=== PATIENT | female | born 1995 | race Hispanic/Latino ===

== ENCOUNTER 2019-02-08 21:06 | Emergency (ER) | payer BC, MEDICAID ==
[2019-02-08] MEDS ORDERED: DEXAMETHASONE SOD PHOSPHATE 10MG/ML 1ML VIAL ONE (21:54)
== END 2019-02-08 22:09 | disposition home or self-care (01) ==
LOC: EDH 21:06
DX: O26.892 Other specified pregnancy related conditions, second trimester (principal); H69.81 Other specified disorders of Eustachian tube, right ear; Z90.49 Acquired absence of other specified parts of digestive tract; Z3A.14 14 weeks gestation of pregnancy
CPT/HCPCS: 96372; 99284; J1100

== ENCOUNTER 2019-07-17 15:21 | Observation (INO) | payer BC, MEDICAID ==
[~2019-07-17] VITALS: Ht 157.5 cm; Wt 71.2 kg
[2019-07-17 16:26] VITALS: BP 117/66
== END 2019-07-17 16:39 | disposition home or self-care (01) ==
LOC: EDH 15:21 → LDH 15:32
DX: O26.893 Other specified pregnancy related conditions, third trimester (principal); R10.2 Pelvic and perineal pain; R19.7 Diarrhea, unspecified; Z3A.36 36 weeks gestation of pregnancy
CPT/HCPCS: 99284; G0378